=== PATIENT | female | born 1975 | race Caucasian/White ===

== ENCOUNTER 2019-07-29 22:48 | Emergency (ER) | payer SELFPAY ==
--- NOTE | 2019-07-29 22:56 | EDM.PDOC ---
ED HPI GENERAL MEDICAL PROBLEM - General Chief Complaint: Syncope Stated Complaint: SYNCOPE Time Seen by Provider: 07/29/19 22:55 - History of Present Illness INITIAL COMMENTS - FREE TEXT/NARRATIVE: 44-year-old female presents the emergency room with a syncopal complaint Almost 48 hours ago the patient had a syncopal event while at work. Apparently she gets several of these a year and has never had these worked up. This most recent event was like most of them she knew it was coming on and could get to the ground before fully passing out. Oftentimes she does not fully passing out. This was not associated with any chest pain breathing difficulties or shortness of breath. When she gets these often times she will see floaters in her eyes. But not always the patient does not have a family history of people passing out however her mom did have heart disease but she cannot specify what it was. Only the patient is not taking any medications. - Related Data Allergies Allergy/AdvReac Type Severity Reaction Status Date / Time No Known Allergies Allergy Verified 07/29/19 23:11 Home Meds: Home Meds . [No Known Home Meds] 07/29/19 [History] ED ROS GENERAL - Review of Systems Review Of Systems: See Below Constitutional: Reports: No Symptoms HEENT: Reports: No Symptoms Respiratory: Reports: No Symptoms Cardiovascular: Reports: Syncope Endocrine: Reports: No Symptoms GI/Abdominal: Reports: No Symptoms : Reports: No Symptoms Musculoskeletal: Reports: No Symptoms Skin: Reports: No Symptoms Neurological: Reports: Syncope Psychiatric: Reports: No Symptoms Hematologic/Lymphatic: Reports: No Symptoms Immunologic: Reports: No Symptoms - Physical Exam Exam: See Below Exam Limited By: No Limitations General Appearance: Alert, No Apparent Distress Eye Exam: Bilateral Eye: Normal Inspection, PERRL Ears: Normal External Exam, Normal Canal, Hearing Grossly Normal, Normal TMs Nose: Normal Inspection, Normal Mucosa, No Blood Throat/Mouth: Normal Inspection, Normal Lips, Normal Teeth, Normal Gums, Normal Oropharynx, Normal Voice, No Airway Compromise Head Exam: Atraumatic, Normocephalic Neck: Normal Inspection, Supple, Non-Tender, Full Range of Motion Respiratory/Chest: No Respiratory Distress, Lungs Clear, Normal Breath Sounds Cardiovascular: Normal Peripheral Pulses, Regular Rate, Rhythm, No Edema GI/Abdominal: Normal Bowel Sounds, Soft, Non-Tender (Female) Exam: Normal External Exam Neuro Exam (Abbreviated): Alert, Oriented Back Exam: Normal Inspection, Full Range of Motion, CVA Tenderness (L), CVA Tenderness (R) Extremities: Normal Inspection, Normal Range of Motion, No Pedal Edema Psychiatric: Normal Affect, Normal Mood Skin Exam: Warm, Dry, Intact EKG INTERPRETATION EKG Date: 07/30/19 Rhythm: NSR [place]: Normal P-Wave: Present QRS: Normal ST-T: Normal QT: Normal Comparison: NA - No Prior EKG EKG Interpretation Comments: Normal EKG Course - Vital Signs Last Recorded V/S: Last Vital Signs Temp 36.7 C 07/29/19 23:07 Pulse 74 07/29/19 23:07 Resp 16 07/29/19 23:07 BP 135/94 H 07/29/19 23:07 Pulse Ox 100 07/29/19 23:07 - Orders/Labs/Meds Orders: Active Orders 24 hr Category Date Time Status EKG Documentation Completion [RC] STAT Care 07/29/19 23:12 Active Holter Monitor 24 Hours [RC] .PRN Care 07/30/19 00:31 Ordered Chest 1V Frontal [CR] Stat Exams 07/29/19 23:14 Taken Labs: Laboratory Tests 07/29/19 07/29/19 Range/Units 23:34 23:34 WBC 6.21 (3.98-10.04) K/mm3 RBC 4.92 (3.98-5.22) M/mm3 Hgb 14.2 (11.2-15.7) gm/dl Hct 43.8 (34.1-44.9) % MCV 89.0 (79.4-94.8) fl MCH 28.9 (25.6-32.2) pg MCHC 32.4 (32.2-35.5) g/dl RDW Std Deviation 45.4 (36.4-46.3) fL Plt Count 286 (182-369) K/mm3 MPV 10.1 (9.4-12.3) fl Neut % (Auto) 57.5 (34.0-71.1) % Lymph % (Auto) 31.7 (19.3-51.7) % [place] % (Auto) 8.2 (4.7-12.5) % Eos % (Auto) 1.8 (0.7-5.8) Baso % (Auto) 0.6 (0.1-1.2) % Neut # (Auto) 3.57 (1.56-6.13) K/mm3 Lymph # (Auto) 1.97 (1.18-3.74) K/mm3 [place] # (Auto) 0.51 H (0.24-0.36) K/mm3 Eos # (Auto) 0.11 (0.04-0.36) K/mm3 Baso # (Auto) 0.04 (0.01-0.08) K/mm3 Sodium 140 (136-145) mEq/L Potassium 4.3 (3.5-5.1) mEq/L Chloride 106 (98-107) mEq/L Carbon Dioxide 26 (21-32) mEq/L Anion Gap 12.3 (5-15) BUN 8 (7-18) mg/dL Creatinine 0.7 (0.55-1.02) mg/dL Est Cr Clr Drug Dosing 79.00 mL/min Estimated GFR (MDRD) > 60 (>60) mL/min BUN/Creatinine Ratio 11.4 L (14-18) Glucose 90 (74-106) mg/dL Calcium 8.8 (8.5-10.1) mg/dL Magnesium 2.0 (1.8-2.4) mg/dl Total Bilirubin 0.2 (0.2-1.0) mg/dL AST 15 (15-37) U/L ALT 20 (14-59) U/L Alkaline Phosphatase 118 H (46-116) U/L Total Protein 7.8 (6.4-8.2) g/dl Albumin 3.6 (3.4-5.0) g/dl Globulin 4.2 gm/dL Albumin/Globulin Ratio 0.9 L (1-2) TSH 3rd Generation 2.511 (0.358-3.74) uIU/mL - Re-Assessments/Exams Free Text/Narrative Re-Assessment/Exam: 07/30/19 00:34 She has a normal EKG chest x-ray does not show cardiomegaly or any other acute cardiopulmonary changes. Laboratory evaluation is unrevealing. We will check a Holter monitor Departure - Departure Time of Disposition: 00:35 Disposition: Home, Self-Care 01 Clinical Impression: Syncopal episodes - Discharge Information Referrals: PCP,None [Primary Care Provider] - Forms: ED Department Discharge Additional Instructions: Return to the emergency room with any questions problems or worsening symptoms. Follow-up with your regular physician in several days after you return the Holter monitor. You may benefit from taking supplemental calcium 5 to 600 mg 3 times a day and magnesium, magnesium oxide 400 mg 1 daily. Sepsis Event Note - Focused Exam Vital Signs: Vital Signs Temp Pulse Resp BP Pulse Ox 07/29/19 23:07 36.7 C 74 16 135/94 H 100 Date Exam was Performed: 07/30/19 Time Exam was Performed: 00:34 - My Orders Last 24 Hours: My Active Orders 07/29/19 23:12 EKG Documentation Completion [RC] STAT 07/29/19 23:14 Chest 1V Frontal [CR] Stat 07/30/19 00:31 Holter Monitor 24 Hours [RC] .PRN - Assessment/Plan Last 24 Hours: My Active Orders 07/29/19 23:12 EKG Documentation Completion [RC] STAT 07/29/19 23:14 Chest 1V Frontal [CR] Stat 07/30/19 00:31 Holter Monitor 24 Hours [RC] .PRN
--- NOTE | 2019-07-30 06:49 | CR ---
Chest: Portable view of the chest was obtained. Comparison: No prior chest imaging is available. Heart size and mediastinum are normal. Nodular density is noted within the left hilum. Uncertain if this represents a enlarged lymph node or vascular confluence. Lungs otherwise are clear. Bony structures are unremarkable. Impression: 1. Equivocal nodular density with left hilum as described above. Contrast-enhanced chest CT is suggested to hopefully exclude an enlarged left hilar nodule. 2. Nothing acute is otherwise seen. Diagnostic code #9 This report was dictated in [facility]
== END 2019-07-30 00:43 | disposition home or self-care (01) ==
LOC: JD.ED 22:48
DX: R55 Syncope and collapse (principal)
CPT/HCPCS: 36415; 71045; 71045-26; 80053; 83735; 84443; 85025; 93005; 93010; 93225; 93226; 99283; 99284-25

== ENCOUNTER 2020-06-24 01:16 | Emergency (ER) | payer SELFPAY ==
[2020-06-24] MEDS ORDERED: Albuterol/Ipratropium 3.0-0.5 MG/3 ML Neb Soln NEB ONE (01:51)
--- NOTE | 2020-06-24 02:33 | EDM.PDOC ---
ED HPI GENERAL MEDICAL PROBLEM - General Chief Complaint: Chest Pain Stated Complaint: SOB/CHEST PAIN Time Seen by Provider: 06/24/20 01:41 Source of Information: Reports: Patient, RN Notes Reviewed - History of Present Illness INITIAL COMMENTS - FREE TEXT/NARRATIVE: Onset of difficulty breathing a short time ago. Hx of mild COPD from smoking. Has somewhat increased nonprod cough the last few days. No fever or chills. Mild ant. chest pressure associated with the dyspnea. Feeling better after after arrival to ED. she does still smoke. Middle Chest Pain Score (Numeric/FACES): 6 - Related Data Allergies Allergy/AdvReac Type Severity Reaction Status Date / Time No Known Allergies Allergy Verified 06/24/20 01:34 Home Meds: Home Meds . [No Known Home Meds] 07/29/19 [History] Past Medical History - Past Health History Medical/Surgical History: Denies Medical/Surgical History Respiratory History: Reports: COPD Musculoskeletal History: Reports: Other (See Below) Other Musculoskeletal History: pinched nerve in lower back - Infectious Disease History Infectious Disease History: Reports: Chicken Pox Social & Family History - Tobacco Use Tobacco Use Status *Q: Current Every Day Tobacco User Years of Tobacco use: 20 Packs/Tins Daily: 0.2 - Caffeine Use Caffeine Use: Reports: Soda - Recreational Drug Use Recreational Drug Use: No ED ROS GENERAL - Review of Systems Review Of Systems: See Below Constitutional: Denies: Fever, Chills, Diaphoresis HEENT: Denies: Rhinitis, Sinus Problem, Throat Pain Respiratory: Reports: Shortness of Breath, Wheezing, Cough Cardiovascular: Reports: Chest Pain GI/Abdominal: Denies: Abdominal Pain, Nausea, Vomiting Musculoskeletal: Reports: No Symptoms Skin: Reports: No Symptoms Neurological: Reports: Numbness (fingers, gone) ED EXAM, GENERAL - Physical Exam Exam: See Below General Appearance: Alert, No Apparent Distress Nose: Normal Inspection Throat/Mouth: Normal Inspection Head: Atraumatic, Other Respiratory/Chest: No Respiratory Distress, Lungs Clear, Normal Breath Sounds. No: Rhonchi, Wheezing Cardiovascular: Tachycardia Extremities: Normal Inspection. No: Pedal Edema, Leg Pain, Increased Warmth, Redness Neurological: Alert, Oriented, No Motor/Sensory Deficits Skin Exam: Warm, Dry, Normal Color Course - Vital Signs Last Recorded V/S: Last Vital Signs Temp 97.2 F 06/24/20 01:30 Pulse 102 H 06/24/20 01:30 Resp 18 06/24/20 01:30 BP 132/93 H 06/24/20 01:30 Pulse Ox 96 06/24/20 02:01 - Orders/Labs/Meds Orders: Active Orders 24 hr Category Date Time Status RT Aerosol Therapy [RC] ASDIRECTED Care 06/24/20 01:51 Active Chest 1V Frontal [CR] Stat Exams 06/24/20 01:51 Taken Meds: Medications Discontinued Medications Generic Name Dose Route Start Last Admin Trade Name Freq PRN Reason Stop Dose Admin Albuterol/Ipratropium 3 ml 06/24/20 01:51 06/24/20 02:00 Albuterol/Ipratropium 3.0-0.5 Mg/3 Ml Neb Soln NEB 06/24/20 01:52 3 ml ONETIME ONE Administration - Re-Assessments/Exams Free Text/Narrative Re-Assessment/Exam: 06/24/20 02:39 Have given a duoneb RX. CXR clear. Discharge instr. as documented. Departure - Departure Time of Disposition: 02:31 Disposition: Home, Self-Care 01 Condition: Fair Clinical Impression: Dyspnea, URI (upper respiratory infection), COPD (chronic obstructive pulmonary disease) - Discharge Information Instructions: Shortness of Breath, Adult, [id number] Referrals: Prerna Newman, [employer] [Primary Care Provider] - Forms: ED Department Discharge Additional Instructions: Stop smoking. Albuterol neb q 4 to 6 hr if needed for further difficulty breathing. Follow up clinic as needed. Return to ED as needed if symptoms worsening in any way. Sepsis Event Note (ED) - Evaluation Sepsis Screening Result: No Definite Risk - Focused Exam Vital Signs: Vital Signs Temp Pulse Resp BP Pulse Ox Pulse Ox 06/24/20 02:01 96 06/24/20 01:30 97.2 F 102 H 18 132/93 H 94 L - My Orders Last 24 Hours: My Active Orders 06/24/20 01:51 RT Aerosol Therapy [RC] ASDIRECTED Chest 1V Frontal [CR] Stat - Assessment/Plan Last 24 Hours: My Active Orders 06/24/20 01:51 RT Aerosol Therapy [RC] ASDIRECTED Chest 1V Frontal [CR] Stat
--- NOTE | 2020-06-24 08:01 | CR ---
Chest: Portable view of the chest was obtained. Comparison: Prior chest x-ray was 07/29/[address] of 08/04/19. Heart size and mediastinum are within normal limits. Slightly prominent left hilum is seen which appears stable from prior chest x-ray and appears to represent normal vasculature. Lungs show slight increased central lung markings most likely representing mild bronchitis. Lungs otherwise are clear. Bony structures show nothing acute. Impression: 1. Findings suspicious for mild central bronchitis within both lungs. 2. No additional abnormality is appreciated on portable chest x-ray. Diagnostic code #3
== END 2020-06-24 02:39 | disposition home or self-care (01) ==
LOC: JD.ED 01:16
DX: J44.9 Chronic obstructive pulmonary disease, unspecified (principal); J06.9 Acute upper respiratory infection, unspecified; Z72.0 Tobacco use
CPT/HCPCS: 71045; 71045-26; 93005; 94640; 99283; 99285-25; J7620-GY

== ENCOUNTER 2024-08-14 13:36 | Day surgery (SDC) | payer MEDICAID ==
[2024-08-14] MEDS: Polymyxin B/Trimethoprim 10 ML Bottle EYERT SCH (13:55)
[2024-08-14] MEDS: Brimonidine 0.2% Ophth Soln 5 ML Bottle EYERT SCH (14:02)
[2024-08-14] MEDS: Phenylephrine 2.5% Ophth Soln 2 ML Bot EYERT SCH (14:06)
[2024-08-14] MEDS: Tropicamide 1% Ophth Soln 3 ML Bottle EYERT SCH (14:09)
[2024-08-14] MEDS: Tetracaine HCl/PF 0.5% 4 ML Bottle EYEBOTH SCH (15:03)
[2024-08-14] MEDS: Lidocaine 1% PF 2 ML SDV INJECT SCH (15:30)
[2024-08-14] MEDS: Cefuroxime 10 MG/ML SYRINGE EYERT SCH (15:48)
[2024-08-14] MEDS: Pilocarpine 4% Ophth Soln 15 ML Bot EYERT SCH (15:49)
== END 2024-08-14 15:56 ==
LOC: JD.SDS 13:36
PROVIDERS: ATTEND Ophthalmology
DX: H25.812 Combined forms of age-related cataract, left eye (principal); H25.89 Other age-related cataract; H21.81 Floppy iris syndrome; H21.41 Pupillary membranes, right eye; J44.9 Chronic obstructive pulmonary disease, unspecified; Z79.899 Other long term (current) drug therapy
CPT/HCPCS: 66982; A9270; V2632; 00142; J3490

== ENCOUNTER 2024-09-18 11:46 | Day surgery (SDC) | payer MEDICAID ==
[2024-09-18] MEDS: Polymyxin B/Trimethoprim 10 ML Bottle EYELF SCH (07:15)
[2024-09-18] MEDS: Pilocarpine 4% Ophth Soln 15 ML Bot EYELF SCH (07:15)
[2024-09-18] MEDS: Lidocaine 1% PF 2 ML SDV INJECT SCH (07:15)
[2024-09-18] MEDS: Cefuroxime 10 MG/ML SYRINGE EYELF SCH (07:15)
[2024-09-18] MEDS: Tetracaine HCl/PF 0.5% 4 ML Bottle EYEBOTH SCH (07:15)
[2024-09-18] MEDS: Tropicamide 1% Ophth Soln 3 ML Bottle EYELF SCH (12:19)
== END 2024-09-18 13:58 | disposition home or self-care (01) ==
LOC: JD.SDS 11:46
PROVIDERS: ATTEND Ophthalmology
DX: H25.812 Combined forms of age-related cataract, left eye (principal); H52.31 Anisometropia; Z96.1 Presence of intraocular lens; Z79.899 Other long term (current) drug therapy
CPT/HCPCS: 66984; A9270; J0697; 00142; J3490